=== PATIENT | male | born 1955 | race Caucasian/White ===

== ENCOUNTER 2020-02-28 10:15 | Outpatient (REF) | payer MEDICARE, SELFPAY ==
[2020-02-28 13:37] LABS: Hemoglobin A1C 6.2 % (3.8-5.6)
[2020-02-28 14:11] LABS: CREATININE 0.77 mg/dL (0.70-1.30); Calculated LDL 105 mg/dL (<100); Cholesterol 170 mg/dL (<200); Glucose 96 mg/dL (74-106); HDL Cholesterol 32 mg/dL (40-60); Potassium 4.4 mmol/L (3.5-5.1); Triglyceride 165 mg/dL (<150)
== END 2020-02-28 10:35 ==
LOC: LBN 10:15
PROVIDERS: PCP Family Medicine; Visit Provider Family Medicine
DX: R73.9 Hyperglycemia, unspecified (principal); E78.5 Hyperlipidemia, unspecified; E74.39 Other disorders of intestinal carbohydrate absorption; I10 Essential (primary) hypertension
CPT/HCPCS: 80061; 82947; 82565; 83036; 84132

== ENCOUNTER 2020-12-22 10:41 | Outpatient (REF) | payer MEDICARE, SELFPAY ==
[2020-12-22 14:58] LABS: Hemoglobin A1C 6.4 % (<5.7)
[2020-12-22 15:23] LABS: ALT 38 U/L (16-63); AST 19 U/L (15-37); Albumin 3.8 g/dL (3.4-5.0); Alkaline Phosphatase 80 U/L (46-116); Anion Gap 8.5 mmol/L (3-11); BUN 18 mg/dL (7-18); Bilirubin, Total 0.3 mg/dL (0.2-1.0); CO2 29.5 mmol/L (21.0-32.0); CREATININE 0.9 mg/dL (0.70-1.30); Calcium 8.9 mg/dL (8.5-10.1); Chloride 106 mmol/L (98-107); GGT 40 U/L (15-85); Glucose 140 mg/dL (74-106); Potassium 4.2 mmol/L (3.5-5.1); Sodium 144 mmol/L (136-145); TSH 1.74 uIU/mL (0.36-3.74); Total Protein 7.2 g/dL (6.4-8.2); Vitamin B12 300 pg/mL (193-986)
[2020-12-22 15:35] LABS: Bilirubin, Direct 0.1 mg/dL (0.0-0.2)
== END 2020-12-22 10:42 | disposition home or self-care (01) ==
LOC: LBN 10:41
PROVIDERS: PCP Family Medicine; Visit Provider Emergency Medicine
DX: I10 Essential (primary) hypertension (principal); E11.9 Type 2 diabetes mellitus without complications; E03.9 Hypothyroidism, unspecified; Z79.899 Other long term (current) drug therapy
CPT/HCPCS: 80048; 80076; 82043; 82570; 82607; 82977; 83036; 84443

== ENCOUNTER 2020-12-24 08:42 | Outpatient (REF) | payer MEDICARE, SELFPAY ==
[2020-12-24 14:29] LABS: COMMENT (LAB VIEW ONLY) 112.48 mg/dL; Microalb ug/mg Crea 87.7 ug/mg Cr
== END 2020-12-24 08:43 | disposition home or self-care (01) ==
LOC: LBN 08:42
PROVIDERS: PCP Family Medicine; Visit Provider Emergency Medicine
DX: E78.5 Hyperlipidemia, unspecified (principal); E11.9 Type 2 diabetes mellitus without complications
CPT/HCPCS: 82043; 82570

== ENCOUNTER 2022-12-02 02:10 | Outpatient (CLI) | payer MEDICARE, SELFPAY ==
[2022-12-02 12:23] LABS: Anion Gap 8.1 mmol/L (3-11); BUN 12 mg/dL (7-18); CO2 29.9 mmol/L (21.0-32.0); CREATININE 0.8 mg/dL (0.70-1.30); Calcium 9.3 mg/dL (8.5-10.1); Chloride 103 mmol/L (98-107); Glucose 163 mg/dL (74-106); Sodium 141 mmol/L (136-145)
[2022-12-02 12:28] LABS: Hemoglobin A1C 7.2 % (<5.7)
== END 2022-12-02 02:11 | disposition home or self-care (01) ==
PROVIDERS: PCP Family Medicine; Visit Provider Family Medicine
DX: E11.51 Type 2 diabetes mellitus with diabetic peripheral angiopathy without gangrene (principal); E87.1 Hypo-osmolality and hyponatremia; I10 Essential (primary) hypertension; E78.00 Pure hypercholesterolemia, unspecified
CPT/HCPCS: 36415; 80048; 83036

== ENCOUNTER 2023-03-09 10:34 | Outpatient (REF) | payer MEDICARE, SELFPAY ==
[2023-03-09 19:34] LABS: COMMENT (LAB VIEW ONLY) 197.97 mg/dL; Microalb ug/mg Crea 157.4 ug/mg Cr
== END 2023-03-09 10:35 | disposition home or self-care (01) ==
LOC: LBN 10:34
PROVIDERS: PCP Family Medicine; Visit Provider Family Medicine
DX: E11.9 Type 2 diabetes mellitus without complications (principal)
CPT/HCPCS: 82043; 82570

== ENCOUNTER 2023-07-26 09:01 | Emergency (ER) | payer MEDICARE, SELFPAY ==
[2023-07-26 09:09] VITALS: BP 163/99; PULSE 79; RESP 16; TEMP 37.1; O2SAT 95
--- NOTE | 2023-07-26 09:13 | ED.GENADUL_ITS ---
HPI General Stated Complaint: Vascular CHRISTIAN: 3 Date/Time Provider Initiated Documentation: 07/26/23 09:13. HPI Narrative: 67 year-old male presents to ED today by POV/ambulating with his daughter with a chief complaint of L calf and knee pain with walking with onset for a few weeks, subacute for much longer. Quality described as has a pale white hairless calf, states bad circulation issues, and having pain in the popliteal fossa that is worse with activity, no radiation to ulcerations, unilateral leg swelling, erythema, purulent drainage, medial thigh tenderness. Severity is described as 6-7/10. Palliating factors include nothing specific attempted. Provoking factors include nothing specific. Events leading up to the incident/Associated Symptoms: Patient believes he may have PAD, denies history of DVT. Incidentally patient states he had some chest pain last week. Patient not anticoagulated. Related Data Home Medications Medication Instructions Recorded Confirmed aspirin 325 mg tablet 1 tab PO DAILY #90 tab-caps 07/15/13 07/26/23 cholecalciferol (vitamin D3) 25 1,000 unit PO DAILY 09/12/14 07/26/23 mcg (1,000 unit) capsule diphenhydramine 25 1 tab PO QHS PRN 09/07/18 07/26/23 mg-acetaminophen 500 mg tablet (Tylenol PM Extra Strength) amlodipine 5 mg tablet 5 mg PO DAILY #90 tabs 11/28/22 07/26/23 atorvastatin 40 mg tablet (Lipitor) 40 mg PO DAILY #90 tabs 12/01/22 07/26/23 blood-glucose meter (OneTouch #1 ea 12/01/22 07/26/23 Ultra2 Meter) fluoxetine 40 mg capsule 40 mg PO DAILY #90 tab-caps 12/01/22 07/26/23 lancets #100 ea 12/01/22 07/26/23 trazodone 50 mg tablet 50 mg PO QHS #30 tabs 12/01/22 07/26/23 blood sugar diagnostic (OneTouch #100 ea 12/02/22 07/26/23 Ultra Test strips) semaglutide 0.25 mg or 0.5 mg (2 0.25 mg (0.368 mL) subcut QWEEK #3 12/03/22 07/26/23 mg/3 mL) subcutaneous pen injector mL (Ozempic) semaglutide 0.25 mg or 0.5 mg (2 0.5 mg (0.736 mL) subcut QWEEK #3 01/10/23 07/26/23 mg/3 mL) subcutaneous pen injector mL (Ozempic) fluticasone propionate 50 2 spray intranasal DAILY #9.9 grams 03/09/23 07/26/23 mcg/actuation nasal spray,suspension metoprolol succinate 100 mg 100 mg PO DAILY #90 tab-caps 03/09/23 07/26/23 tablet,extended release 24 hr semaglutide 1 mg/dose (2 mg/1.5 1 mg (0.75 mL) subcut QWEEK #3 mL 05/04/23 07/26/23 mL) subcutaneous pen injector lisinopril 20 mg tablet 20 mg PO DAILY #90 tab-caps 05/29/23 07/26/23 ibuprofen 800 mg tablet 800 mg PO TID PRN fever or pain 06/22/23 07/26/23 #90 tab-caps nitroglycerin 0.4 mg sublingual 0.4 mg sublingual q 5 mins PRN 06/22/23 07/26/23 tablet (Nitrostat) chest pain #25 tabs semaglutide 2 mg/dose (8 mg/3 mL) 2 mg (0.75 mL) subcut QWEEK #3 mL 06/22/23 07/26/23 subcutaneous pen injector (Ozempic) Previous Rx's Medication Instructions Recorded amlodipine 5 mg tablet 5 mg PO DAILY #90 tabs 11/28/22 atorvastatin 40 mg tablet (Lipitor) 40 mg PO DAILY #90 tabs 12/01/22 blood-glucose meter (OneTouch #1 ea 12/01/22 Ultra2 Meter) fluoxetine 40 mg capsule 40 mg PO DAILY #90 tab-caps 12/01/22 lancets #100 ea 12/01/22 trazodone 50 mg tablet 50 mg PO QHS #30 tabs 12/01/22 blood sugar diagnostic (OneTouch #100 ea 12/02/22 Ultra Test strips) semaglutide 0.25 mg or 0.5 mg (2 0.25 mg (0.368 mL) subcut QWEEK #3 12/03/22 mg/3 mL) subcutaneous pen injector mL (Ozempic) semaglutide 0.25 mg or 0.5 mg (2 0.5 mg (0.736 mL) subcut QWEEK #3 01/10/23 mg/3 mL) subcutaneous pen injector mL (Ozempic) fluticasone propionate 50 2 spray intranasal DAILY #9.9 grams 03/09/23 mcg/actuation nasal spray,suspension metoprolol succinate 100 mg 100 mg PO DAILY #90 tab-caps 03/09/23 tablet,extended release 24 hr semaglutide 1 mg/dose (2 mg/1.5 1 mg (0.75 mL) subcut QWEEK #3 mL 05/04/23 mL) subcutaneous pen injector lisinopril 20 mg tablet 20 mg PO DAILY #90 tab-caps 05/29/23 ibuprofen 800 mg tablet 800 mg PO TID PRN fever or pain 06/22/23 #90 tab-caps nitroglycerin 0.4 mg sublingual 0.4 mg sublingual q 5 mins PRN 06/22/23 tablet (Nitrostat) chest pain #25 tabs semaglutide 2 mg/dose (8 mg/3 mL) 2 mg (0.75 mL) subcut QWEEK #3 mL 06/22/23 subcutaneous pen injector (Ozempic) Allergies Allergy/AdvReac Type Severity Reaction Status Date / Time venom-honey bee AdvReac Intermediate Verified 07/26/23 09:13 Review of Systems All systems reviewed & are unremarkable except as noted in HPI and below PFSH All Active Problems Peripheral arterial disease (Acute) Bilateral hip pain (Acute) Tinea pedis (Acute) Neuropathy (Acute) Diabetes mellitus (Chronic) Corneal foreign body (Acute) Hypertension (Chronic) History of intravascular stent placement (Acute) Allergic sinusitis (Chronic) Insomnia (Chronic) Physical deconditioning (Acute 11/22/17) Obesity (Acute 12/13/12) Impotence (Acute) IFG (impaired fasting glucose) (Acute 11/29/17) Hypercholesterolemia (Acute 12/13/12) Essential hypertension (Acute 06/20/13) Depressive disorder (Acute 12/13/12) Coronary atherosclerosis of [place] coronary vessel (Acute) Acute anterior HI-stent placed; 2002 Atherosclerosis of [place] coronary artery (Acute) Acute anterior HI-stent placed; 2002 LAD Alcohol abuse (Acute) uses less at present (2009) Surgical History Stent placement 2003 X 2 Family History (Updated 03/02/20 @ 11:05 by Rosa Maria Naylor) Mother , 62 Essential hypertension Alzheimer disease Depression Hyperlipidemia Cancer Cervical Heart disease Alcohol abuse Father , 84 Essential hypertension Heart disease Hyperlipidemia Sister , 29 Essential hypertension Hyperlipidemia Grandfather Alzheimer disease Grandfather Heart disease Grandmother Essential hypertension Grandmother Neoplasm ? Sister Substance abuse Depression Sister , MVA at age 29. No problems noted. Son Substance abuse H/O Depression Alcohol abuse Son Depression Alcohol abuse Daughter No problems noted. Daughter Depression Maternal Grandfather , 70s Alcohol abuse Alzheimer disease Paternal Grandfather , 47 Heart disease Maternal Grandmother , 78 Hypertension Paternal Grandmother , 76 No problems noted. 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 Pets and animals: Yes Pets and animals: cat(s) and dog(s) Sexually active: No Do you think of yourself as: straight/heterosexual Current gender identity: male What is your relationship status?: How often do you talk on the phone with friends or family?: twice per week How often do you get together with friends or relatives?: once per week How often do you attend gnosticist or rastafari services?: decline to answer Do you belong to any clubs or organized social groups?: no Panel score (0-1 are the most socially isolated patients): 2 What type of physical activity do you participate in: aerobic and other 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 SKIN: Warm, pink, dry, intact, without rashes/lesions/ulcerations. HEAD: Normocephalic, atraumatic, normal hair distribution for gender/age. EYES: Pupils PERRLA, EOMs intact without nystagmus, normal conjunctiva, no exudates on lids/lashes. ENT: Nares patent, no circumoral cyanosis, no facial swelling NECK: Supple, trachea midline, painless cervical ROM. LUNGS/CHEST: Non-labored respirations, normal A/P diameter, symmetrical expansion, no chest wall deformity HEART (CV/PV): Regular rate, L dorsalis pedis 2+, no peripheral edema, no JVD. ABDOMEN: Soft, non-distended, no guarding. MSK: Normal ROM, no swelling/deformity to bilateral UEs or LEs, moving all extremities without weakness, no cyanosis, spine midline without tenderness, normal curvature. L LE: Pale cool left lower extremity with brisk capillary refill and all toes, left dorsalis pedis pulse 2+, no leg ulcerations, left popliteal pulse not palpable history Leg swelling or skin changes of DVT, no joint line tenderness in the left knee, no left hip tenderness, no lumbar back tenderness, no saddle anesthesia NEURO: Mental Status AAOx4 - alert to person, place, time, events No facial droop, no forehead involvement. Motor: No focal weakness - strength 5/5 in bilateral UEs and LEs, proximal and distal, symmetric. Sensory: sensation intact to light touch globally. Gait normal: patient ambulated without ataxia into ED room. PSYCH: euthymic, cooperative, pleasant, appropriate speech Course Vital Signs Vital signs: Vital Signs Temperature 37.1 C 07/26/23 09:09 Pulse 79 07/26/23 09:09 Respiratory Rate 16 07/26/23 09:09 Blood Pressure 163/99 H 07/26/23 09:09 Pulse Oximetry 95 07/26/23 09:09 Temperature 37.1 C 07/26/23 09:09 Temperature Source Temporal Artery Scan 07/26/23 09:09 Pulse 79 07/26/23 09:09 Respiratory Rate 16 07/26/23 09:09 Respiratory Effort Normal 07/26/23 09:12 Blood Pressure 163/99 H 07/26/23 09:09 Blood Pressure Position Sitting 07/26/23 09:09 Pulse Oximetry 95 07/26/23 09:09 Oxygen Delivery Method Room Air 07/26/23 09:09 Oxygen Flow Rate 0 07/26/23 09:09 Pain Level 0 07/26/23 09:09 Comment Pain severe this morning when trying to get out of bed 07/26/23 09:09 Medical Decision Making This dictation utilizes [id number] dictation software and may contain unedited grammatical errors. 67 y/o M presents to ED today with a chief complaint of L leg pain, worse with activity, hx poor circulation to legs- questions PAD, reporting coolness and paleness of leg with pain with walking. Patients' medical history: Diabetes mellitus, hypertension, CAD alcohol use disorder. Family and social history: Lives independently, eats healthy diet. Pertinent exam findings / vital signs include L LE: Pale cool left lower extremity with brisk capillary refill and all toes, left dorsalis pedis pulse 2+, no leg ulcerations, left popliteal pulse not palpable history Leg swelling or skin changes of DVT, no joint line tenderness in the left knee, no left hip tenderness, no lumbar back tenderness, no saddle anesthesia. Differential / pathologies of concern include PAD, DVT, Statin related myalgia, Neuropathy, Sprain. Diagnostic studies of: -D-dimer, Trop I, CK, EKG, CBC/CMP, CTA L LE. -D-dimer negative, no clotting -Trop I neg -CBC/CMP benign -CK neg -EKG shows sinus rhythm at 67, slight left axis deviation, slightly prolonged IN interval of 206, narrow complex QRS without U waves, poor R wave progression. -CTA L LE shows some stenosis at L popliteal but has flow, suspect his syndrome is intermittent claudication of mild PAD with 40-50% stenosis Interventions of: -Counseled on likely PAD, recommend ECHO before starting cilostazol with hx CAD, recommend PCP referral to Vascular. Findings not consistent with occlusive pathology, DVT, rhabdo. Disposition of Peripheral Artery Disease. Patient verbalized understanding of the plan and return to ED criteria and engaged in shared decision making. Medical Records Medical records reviewed: Yes I reviewed the patient's medical records. Imaging Data Radiologic Study: Imaging: X-Ray Radiologist's impression: EXAM: XR CHEST 2V PA LATERAL CLINICAL HISTORY: chest pain days ago TECHNIQUE: 2D digital imaging was performed of the chest. Two images were obtained. PA and lateral views were obtained. COMPARISON: CR CHEST 2 VIEWS PA,LAT from 09/12/2014 FINDINGS: MEDIASTINUM: Normal. HEART: Stable mild cardiomegaly. PULMONARY VASCULATURE: Normal. LUNGS: Clear. PLEURAL SPACE: No pleural effusion or pneumothorax. BONE:Within normal limits for the patient's age. OTHER FINDINGS:Normal. IMPRESSION: No acute pulmonary findings. Radiologic Study #2: Imaging: CT Scan Radiologist's impression: EXAM: CT LOWER EXTREMITY LT CTA CLINICAL HISTORY: ?PAD. TECHNIQUE: Imaging Protocol: Axial CT angiography was performed with multi- slice acquisition and multi-planar and/or 3D reconstructions. CONTRAST MATERIAL: Intravenous: Omnipaque 350 Contrast volume:100 mL Oral: No COMPARISON: No exams were available for comparison FINDINGS: Vascular Structures: Abdomen and pelvis: Celiac [place]/SMA: No evidence of occlusion or significant stenosis. Mild calcific plaque is seen in the superior mesenteric artery but no significant stenosis is seen. No occlusion is seen. Renal Arteries: No evidence of occlusion or significant stenosis. Mild calcification is seen at the origin of both renal arteries but no significant stenosis is seen. Aorta: No aneurysm, occlusion or significant stenosis. There is calcification in the abdominal aorta but no evidence of dissection or occlusion. Iliac Arteries: There is mild calcifications seen in the common left iliac artery and the left internal iliac artery. No evidence of occlusion or sig nificant stenosis. Lower extremities: Left: Common Femoral: No evidence of occlusion or significant stenosis. Femoral: No evidence of occlusion or significant stenosis. Deep femoral artery: No evidence of occlusion or significant stenosis. Popliteal: No evidence of occlusion or significant stenosis. There is calcification seen in the popliteal artery but no significant stenosis. Knee Trifurcation: No evidence of occlusion or significant stenosis. There is calcification seen in the vessels of the trifurcation but no significant stenosis. There is calcification seen at the origin of the anterior tibial artery. There is faint flow seen in the anterior tibial artery. Soft Tissues: There is limited visualization of the abdomen. The visualized portions of the liver, gallbladder, bile ducts, pancreas, spleen and kidneys are unremarkable. Bladder: Symmetric distention, no gross wall thickening. Bowel: The visualized bowel is unremarkable. Visualized peritoneal cavity: No ascites, collection or mesenteric inflammatory response. No free air. Bones: Within normal limits for the patient's age. IMPRESSION: 1. Atherosclerosis is present. No evidence of occlusion of the arteries of the lower extremity. No stenosis greater than 50 percent is seen. The findings are most marked at the origin of the left anterior tibial artery where there is calcification present. There is faint flow seen distally in the anterior tibial artery. 2. Limited evaluation of the abdomen and pelvis. No acute abnormality is seen. 3. Findings were discussed with Russ Walker at 11:45 a.m. on 07/26/2023. Lab Data Lab results reviewed: Yes I reviewed the patient's lab results. Labs: Laboratory Tests Range/Units 07/26/23 09:35 WBC (4.4-10.8) 10^3/uL 10.13 RBC (4.36-5.78) 10^6/uL 4.92 Hgb (13.5-17.5) g/dL 14.3 Hct (40.0-50.0) % 43.2 MCV (80-95) fL 88 MCH (27.0-33.0) pg 29.1 MCHC (32.0-36.0) % 33.1 RDW (11.8-14.1) % 12.8 Plt Count (130-400) 10^3/uL 289 MPV (8.0-11.0) fL 9.9 Immature Gran % 0.5 Neutrophils % 57.4 Lymphocytes % 34.4 Monocytes % 5.3 Eosinophils % 1.9 Basophils % 0.5 Nucleated RBC % (0.0-0.3) % 0.0 Absolute Neutrophils (1.2-6.7) 10^3/uL 5.82 Absolute Lymphocytes (1.2-3.4) 10^3/uL 3.48 H Absolute Monocytes (0.1-0.8) 10^3/uL 0.54 Absolute Eosinophils (0.0-0.7) 10^3/uL 0.19 Absolute Basophils (0.0-0.2) 10^3/uL 0.05 D-Dimer (<500) ng/mlFEU 472 Sodium (136-145) mmol/L 138 Potassium (3.5-5.1) mmol/L 4.5 Chloride (98-107) mmol/L 103 Carbon Dioxide (21.0-32.0) mmol/L 27.7 Anion Gap (3-11) mmol/L 7.3 BUN (7-18) mg/dL 11 Creatinine (0.70-1.30) mg/dL 0.8 Est GFR (CKD-EPI 2020) (mL/min/1.73m2) 95.80 Glucose (74-106) mg/dL 163 H Calcium (8.5-10.1) mg/dL 9.2 Total Bilirubin (0.2-1.0) mg/dL 0.5 AST (15-37) U/L 31 ALT (16-63) U/L 38 Alkaline Phosphatase (46-116) U/L 82 Troponin I (<or=60) ng/L < 50 NT-Pro-B Natriuret Pep (<300) pg/mL 21 Total Protein (6.4-8.2) g/dL 8.0 Albumin (3.4-5.0) g/dL 3.7 Quality:SDOH Health Related Social Needs: No Data to Display Discharge Plan Disposition Patient Disposition: Home Condition: Stable Discharge Details Clinical Impression: Peripheral arterial disease Primary Care Provider: Franklyn Jacobson ED Provider: Russ Walker Home Meds and New Rx's Prescriptions: Continued diphenhydramine-acetaminophen [Tylenol PM Extra Strength] 25-500 mg tablet 1 tab PO QHS PRN fluoxetine 40 mg capsule 40 mg PO DAILY Qty: 90 3RF atorvastatin [Lipitor] 40 mg tablet 40 mg PO DAILY Qty: 90 3RF trazodone 50 mg tablet 50 mg PO QHS Qty: 30 11RF (DME) lancets Mis See Rx Instructions .MEDSUPPLY Qty: 100 4RF Rx Instructions: Check blood sugar once a day (DME) blood-glucose meter [OneTouch Ultra2 Meter] Mis See Rx Instructions .MEDSUPPLY Qty: 1 4RF Rx Instructions: Check blood sugar once a day metoprolol succinate 100 mg tablet extended release 24 hr 100 mg PO DAILY Qty: 90 3RF fluticasone propionate 50 mcg/actuation spray,suspension 2 spray ANNE MARIE DAILY Qty: 9.9 5RF Rx Instructions: administer into each nostril Ozempic 2 mg/dose (8 mg/3 mL) pen injector 2 mg subcut QWEEK Qty: 3 2RF ibuprofen 800 mg tablet 800 mg PO TID PRN (Reason: fever or pain) Qty: 90 1RF nitroglycerin [Nitrostat] 0.4 mg tablet, sublingual 0.4 mg Sublingual q 5 mins MDD 3 pills PRN (Reason: chest pain) Qty: 25 0RF Rx Instructions: seek immediate medical attention for persistent pain aspirin 325 MG tablet 1 tab PO DAILY Qty: 90 cholecalciferol (vitamin D3) 1,000 UNIT capsule 1,000 unit PO DAILY amlodipine 5 mg tablet 5 mg PO DAILY Qty: 90 3RF (DME) OneTouch Ultra Test Strip See Rx Instructions .Route Qty: 100 4RF Rx Instructions: Check blood sugar once a day Ozempic 0.25 mg or 0.5 mg (2 mg/3 mL) pen injector 0.25 mg subcut QWEEK Qty: 3 0RF Rx Instructions: for 4 weeks Ozempic 0.25 mg or 0.5 mg (2 mg/3 mL) pen injector 0.5 mg subcut QWEEK Qty: 3 0RF Rx Instructions: start after 4 weeks of 0.25 mg semaglutide 1 mg/dose (2 mg/1.5 mL) pen injector 1 mg subcut QWEEK Qty: 3 1RF lisinopril 20 mg tablet 20 mg PO DAILY Qty: 90 3RF Discharge Instructions Instructions: Peripheral Artery Disease (ED) Additional Instructions: You were seen in the emergency department for your left calf pain standing. There is some evidence for peripheral artery disease and your popliteal and tibial arteries, you do have collateral flow and there is no evidence of occlusion of any arteries of the leg. Your cardiac workup was negative, we checked for any breakdown of muscle with a lab called a CK due to your use of atorvastatin which was negative. There is a medication for the intermittent leg pain of peripheral artery disease called lamine stays all but it is contraindicated any level of heart failure and I think he should obtain an echocardiogram and speak to your primary care provider before starting this medication. You may need a referral from your primary care provider to see vascular [facility] at [facility]. Please return for any signs of arterial occlusion of the lower extremity including paresthesia, coolness to touch, extreme pain even with light touch. Referrals: Franklyn Jacobson MD [Primary Care Provider] - (May need cilostazol, sub- 50% stenosis but symptomatic PAD) Discharge Data Discharge Date/Time-TO BE ENTERED AT DEPARTURE: 07/26/23 12:35
[2023-07-26 09:19] VITALS: RESP 15
[2023-07-26 09:39] LABS: Abs Immature Grans 0.05 10^3/uL (0.0-0.06); Absolute Basophil Count 0.05 10^3/uL (0.0-0.2); Absolute Eosinophil Count 0.19 10^3/uL (0.0-0.7); Absolute Lymphocyte Count 3.48 10^3/uL (1.2-3.4); Absolute Monocyte Count 0.54 10^3/uL (0.1-0.8); Absolute Neutrophil Count 5.82 10^3/uL (1.2-6.7); Basophils % 0.5; Eosinophils % 1.9; HCT 43.2 % (40.0-50.0); HGB 14.3 g/dL (13.5-17.5); Immature Grans % 0.5; Lymphocytes % 34.4; MCH 29.1 pg (27.0-33.0); MCHC 33.1 % (32.0-36.0); MCV 88 fL (80-95); MPV 9.9 fL (8.0-11.0); Monocytes % 5.3; Neutrophils % 57.4; Platelet Count 289 10^3/uL (130-400); RBC 4.92 10^6/uL (4.36-5.78); RDW 12.8 % (11.8-14.1); RDW-SD 40.9 fL; WBC 10.13 10^3/uL (4.4-10.8)
--- NOTE | 2023-07-26 10:00 | DI.RAD_ITS ---
Exam(s) XR CHEST 2V PA LATERAL EXAM: XR CHEST 2V PA LATERAL CLINICAL HISTORY: chest pain days ago TECHNIQUE: 2D digital imaging was performed of the chest. Two images were obtained. PA and lateral views were obtained. COMPARISON: CR CHEST 2 VIEWS PA,LAT from 09/12/2014 FINDINGS: MEDIASTINUM: Normal. HEART: Stable mild cardiomegaly. PULMONARY VASCULATURE: Normal. LUNGS: Clear. PLEURAL SPACE: No pleural effusion or pneumothorax. BONE:Within normal limits for the patient's age. OTHER FINDINGS:Normal. IMPRESSION: No acute pulmonary findings. DATA REPOSITORY: RADIATION DOSE DELIVERED:
[2023-07-26 10:03] LABS: ALT 38 U/L (16-63); AST 31 U/L (15-37); Albumin 3.7 g/dL (3.4-5.0); Alkaline Phosphatase 82 U/L (46-116); Anion Gap 7.3 mmol/L (3-11); BUN 11 mg/dL (7-18); Bilirubin, Total 0.5 mg/dL (0.2-1.0); CO2 27.7 mmol/L (21.0-32.0); CREATININE 0.8 mg/dL (0.70-1.30); Calcium 9.2 mg/dL (8.5-10.1); Chloride 103 mmol/L (98-107); Glucose 163 mg/dL (74-106); Potassium 4.5 mmol/L (3.5-5.1); Sodium 138 mmol/L (136-145)
--- NOTE | 2023-07-26 10:15 | RT.EKG_ITS ---
APPROVED REPORT Exam: Resting ECG Reason for Exam: raj pain days ago, brief Patient Location: E HR:67 bpm ECG Measurements Heart Rate 67 AXIS VA [id number] P [id number] QRSd 97 QRS -7 QT 384 T [id number] QTc 406 Conclusion LEAD FAIL
[2023-07-26 10:16] LABS: D-Dimer 472 ng/mlFEU (<500)
[2023-07-26] MEDS: Normal Saline - Diluent 50 ML VIAL IJ (10:23)
[2023-07-26] MEDS: Omnipaque 350 MG/ML 100 ML BTL IJ (10:24)
--- NOTE | 2023-07-26 10:35 | DI.CT_ITS ---
Exam(s) CT LOWER EXTREMITY LT CTA EXAM: CT LOWER EXTREMITY LT CTA CLINICAL HISTORY: ?PAD. TECHNIQUE: Imaging Protocol: Axial CT angiography was performed with multi-slice acquisition and mu lti-planar and/or 3D reconstructions. CONTRAST MATERIAL: Intravenous: Omnipaque 350 Contrast volume:100 mL Oral: No COMPARISON: No exams were available for comparison FINDINGS: Vascular Structures: Abdomen and pelvis: Celiac [place]/SMA: No evidence of occlusion or significant stenosis. Mild calcific plaque is seen in t he superior mesenteric artery but no significant stenosis is seen. No occlusion is seen. Renal Arteries: No evidence of occlusion or significant stenosis. Mild calcification is seen at the o rigin of both renal arteries but no significant stenosis is seen. Aorta: No aneurysm, occlusion or significant stenosis. There is calcification in the abdominal aort a but no evidence of dissection or occlusion. Iliac Arteries: There is mild calcifications seen in the common left iliac artery and the left inter nal iliac artery. No evidence of occlusion or significant stenosis. Lower extremities: Left: Common Femoral: No evidence of occlusion or significant stenosis. Femoral: No evidence of occlusion or significant stenosis. Deep femoral artery: No evidence of occlusion or significant stenosis. Popliteal: No evidence of occlusion or significant stenosis. There is calcification seen in the pop liteal artery but no significant stenosis. Knee Trifurcation: No evidence of occlusion or significant stenosis. There is calcification seen in the vessels of the trifurcation but no significant stenosis. There is calcification seen at the orig in of the anterior tibial artery. There is faint flow seen in the anterior tibial artery. Soft Tissues: There is limited visualization of the abdomen. The visualized portions of the liver, gallbladder, bile ducts, pancreas, spleen and kidneys are unrem arkable. Bladder: Symmetric distention, no gross wall thickening. Bowel: The visualized bowel is unremarkable. Visualized peritoneal cavity: No ascites, collection or mesenteric inflammatory response. No free air . Bones: Within normal limits for the patient's age. IMPRESSION: 1. Atherosclerosis is present. No evidence of occlusion of the arteries of the lower extremity. No stenosis greater than 50 percent is seen. The findings are most marked at the origin of the left ant erior tibial artery where there is calcification present. There is faint flow seen distally in the a nterior tibial artery. 2. Limited evaluation of the abdomen and pelvis. No acute abnormality is seen. 3. Findings were discussed with Russ Walker at 11:45 a.m. on 07/26/2023. RADIATION DOSE DELIVERED: 1,794.28mGy.cm Total DLP DATA REPOSITORY: All CT scans at this facility are submitted to the National Radiology Data Registry (NRDR) Dose Index Registry (DIR) with the [employer] [place] [employer] ([employer]). RADIATION OPTIMIZATION: All CT scans at this facility use at least one of these dose optimization te chniques: automated exposure control; mA and/or kV adjustment per patient size (includes targeted exa ms where dose is matched to clinical indication); or iterative reconstruction.
[2023-07-26 10:43] LABS: NT-proBNP 21 pg/mL (<300); Troponin I < 50 ng/L (<or=60)
--- NOTE | 2023-07-26 11:00 | RT.EKG_ITS ---
APPROVED REPORT Exam: Resting ECG Reason for Exam: chest pain Patient Location: E HR:67 bpm ECG Measurements Heart Rate 67 AXIS SD 206 P 30 QRSd 100 QRS -32 QT 412 T 8 QTc 434 Conclusion Sinus rhythm normal axis no acute st segment changes
[2023-07-26 12:05] LABS: Creatine Kinase 160 U/L (39-308)
[2023-07-26 12:20] VITALS: BP 153/89; PULSE 70; RESP 14; O2SAT 94
== END 2023-07-26 12:35 | disposition home or self-care (01) ==
PROVIDERS: Emergency Provider Physician Assistant; PCP Family Medicine
DX: I73.9 Peripheral vascular disease, unspecified (principal); I10 Essential (primary) hypertension; E11.9 Type 2 diabetes mellitus without complications; I25.10 Atherosclerotic heart disease of native coronary artery without angina pectoris; I25.2 Old myocardial infarction; E78.00 Pure hypercholesterolemia, unspecified; Z95.5 Presence of coronary angioplasty implant and graft; Z79.85 Long-term (current) use of injectable non-insulin antidiabetic drugs; Z79.899 Other long term (current) drug therapy
CPT/HCPCS: 36415; 73706; 80053; 82550; 93005; 99285; 71046; 83880; 84484; 85025; 85379; 93010; 99284; J3490

== ENCOUNTER 2023-12-20 11:42 | Emergency (ER) | payer MEDICARE, SELFPAY ==
[2023-12-20] VITALS (9 sets, daily range): BP systolic 119–204; BP diastolic 71–109; PULSE 60–90; RESP 14–20; TEMP 36.5; O2SAT 88–95
--- NOTE | 2023-12-20 11:45 | RT.EKG_ITS ---
APPROVED REPORT Exam: Resting ECG Reason for Exam: sob Patient Location: E HR:79 bpm ECG Measurements Heart Rate 79 AXIS [place] 189 P 19 QRSd 98 QRS -37 QT 377 T 7 QTc 434 Conclusion Sinus rhythm...normal P axis, V-rate 60- 99 Inferior infarct, old...Q >35mS, II III aVF Anterior infarct, old...Q >40mS, abnormal ST-T, V2-V5
--- NOTE | 2023-12-20 12:06 | W.ED.GENAD ---
Discharge Plan Disposition Patient Disposition: Home Condition: Stable Discharge Details Clinical Impression: Dislocation of right elbow Primary Care Provider: Franklyn Jacobson ED Provider: Russ Walker Home Meds and New Rx's Prescriptions: Continued fluticasone propionate 50 mcg/actuation spray,suspension 2 spray ANNE MARIE DAILY Qty: 9.9 5RF Rx Instructions: administer into each nostril metoprolol succinate 100 mg tablet extended release 24 hr 100 mg PO DAILY Qty: 90 3RF Tylenol PM Extra Strength 25-500 mg tablet 1 tab PO QHS PRN (DME) lancets Misc See Rx Instructions .MEDSUPPLY Qty: 100 4RF Rx Instructions: Check blood sugar once a day (DME) blood-glucose meter [OneTouch Ultra2 Meter] Misc See Rx Instructions .MEDSUPPLY Qty: 1 4RF Rx Instructions: Check blood sugar once a day ibuprofen 800 mg tablet 800 mg PO TID PRN (Reason: fever or pain) Qty: 90 1RF nitroglycerin [Nitrostat] 0.4 mg tablet, sublingual 0.4 mg Sublingual q 5 mins MDD 3 pills PRN (Reason: chest pain) Qty: 25 0RF Rx Instructions: seek immediate medical attention for persistent pain atorvastatin [Lipitor] 40 mg tablet 40 mg PO DAILY Qty: 90 3RF amlodipine 5 mg tablet 5 mg PO DAILY Qty: 90 3RF fluoxetine 40 mg capsule 40 mg PO DAILY Qty: 90 3RF trazodone 50 mg tablet 50 mg PO QHS Qty: 30 11RF Patient Comments: 1/2 pill usually lisinopril-hydrochlorothiazide 20-12.5 mg tablet 1 tab PO DAILY Qty: 90 3RF aspirin 325 MG tablet 1 tab PO DAILY Qty: 90 cholecalciferol (vitamin D3) 1,000 UNIT capsule 1,000 unit PO DAILY (DME) OneTouch Ultra Test Strip See Rx Instructions .Route Qty: 100 4RF Rx Instructions: Check blood sugar once a day cilostazol 100 mg tablet 100 mg PO BID Qty: 60 2RF tirzepatide 10 mg/0.5 mL pen injector 10 mg subcut QWEEK Qty: 2 0RF Discharge Instructions Instructions: Elbow Dislocation (ED) Additional Instructions: You were seen in the emergency department for your fall with dislocated elbow there is a questionable small fracture fragments on initial x-ray. We underwent closed reduction of your dislocation with success. Please rest, ice, compress and elevate the area, remain in the sling for about a week and then start moving it as to prevent it from becoming frozen at stiff. Please use therapeutic dosing of Tylenol (acetamenophen) & Advil (ibuprofen) in an alternating fashion as follows: Take 650mg of Tylenol every 6 hours without missing doses- that is 4 times per day. [place] in between the Tylenol dosings, take 400mg of Advil also on a 6 hour schedule, that is also 4 times per day. Please note that some common cold medications & prescription pain medications may contain acetamenophen and you need to read OTC drug labels and factor that in to maximum daily dosings. Follow-up with orthopedics for any persistent pain past 2 weeks, return to the emergency department immediately for any signs of neurovascular emergency of the right upper extremity like complete numbness, severe swelling distal to the injury, loss of circulation to the hand Referrals: [facility] [Provider Group] Franklyn Jacobson MD [Primary Care Provider] - Discharge Data Discharge Date/Time-TO BE ENTERED AT DEPARTURE: 12/20/23 15:24 HPI General Date/Time Provider Initiated Documentation: 12/20/23 11:55. HPI Narrative: 68 year-old male presents to ED today by POV/ambulating with his daughter with a chief complaint of trip & fall while carrying a 5 gal. bucket over a wood pile at home, landing on outstretched arm with severe R elbow pain, R-hand dominant with onset just prior to arrival. Quality described as severe R elbow pain, feels out of place, no radiation to complete numbness of hand, coolness to touch, has severe pain with any arm movement, denies shoulder pain, denies headstrike/LOC, denies post-fall nausea/vomiting, no confusion. Severity is described as 10/10. Palliating factors include nothing specific attempted yet. Provoking factors include nothing specific. Patient not anticoagulated. Related Data Home Medications Medication Instructions Recorded Confirmed aspirin 325 mg tablet 1 tab PO DAILY #90 tab-caps 07/15/13 12/20/23 cholecalciferol (vitamin D3) 25 1,000 unit PO DAILY 09/12/14 12/20/23 mcg (1,000 unit) capsule diphenhydramine 25 1 tab PO QHS PRN 09/07/18 12/20/23 mg-acetaminophen 500 mg tablet (Tylenol PM Extra Strength) blood-glucose meter (OneTouch #1 ea 12/01/22 12/20/23 Ultra2 Meter) lancets #100 ea 12/01/22 12/20/23 blood sugar diagnostic (OneTouch #100 ea 12/02/22 12/20/23 Ultra Test strips) ibuprofen 800 mg tablet 800 mg PO TID PRN fever or pain 06/22/23 12/20/23 #90 tab-caps nitroglycerin 0.4 mg sublingual 0.4 mg sublingual q 5 mins PRN 06/22/23 12/20/23 tablet (Nitrostat) chest pain #25 tabs fluticasone propionate 50 2 spray intranasal DAILY #9.9 grams 08/01/23 12/20/23 mcg/actuation nasal spray,suspension metoprolol succinate 100 mg 100 mg PO DAILY #90 tab-caps 08/01/23 12/20/23 tablet,extended release 24 hr amlodipine 5 mg tablet 5 mg PO DAILY #90 tabs 09/27/23 12/20/23 atorvastatin 40 mg tablet (Lipitor) 40 mg PO DAILY #90 tabs 09/27/23 12/20/23 cilostazol 100 mg tablet 100 mg PO BID #60 tabs 09/27/23 12/20/23 fluoxetine 40 mg capsule 40 mg PO DAILY #90 tab-caps 09/27/23 12/20/23 lisinopril 20 1 tab PO DAILY #90 tabs 09/27/23 12/20/23 mg-hydrochlorothiazide 12.5 mg tablet trazodone 50 mg tablet 50 mg PO QHS #30 tabs 09/27/23 12/20/23 tirzepatide 10 mg/0.5 mL 10 mg (0.5 mL) subcut QWEEK #2 mL 11/19/23 12/20/23 subcutaneous pen injector Previous Rx's Medication Instructions Recorded blood-glucose meter (OneTouch #1 ea 12/01/22 Ultra2 Meter) lancets #100 ea 12/01/22 blood sugar diagnostic (OneTouch #100 ea 12/02/22 Ultra Test strips) ibuprofen 800 mg tablet 800 mg PO TID PRN fever or pain 06/22/23 #90 tab-caps nitroglycerin 0.4 mg sublingual 0.4 mg sublingual q 5 mins PRN 06/22/23 tablet (Nitrostat) chest pain #25 tabs fluticasone propionate 50 2 spray intranasal DAILY #9.9 grams 08/01/23 mcg/actuation nasal spray,suspension metoprolol succinate 100 mg 100 mg PO DAILY #90 tab-caps 08/01/23 tablet,extended release 24 hr amlodipine 5 mg tablet 5 mg PO DAILY #90 tabs 09/27/23 atorvastatin 40 mg tablet (Lipitor) 40 mg PO DAILY #90 tabs 09/27/23 cilostazol 100 mg tablet 100 mg PO BID #60 tabs 09/27/23 fluoxetine 40 mg capsule 40 mg PO DAILY #90 tab-caps 09/27/23 lisinopril 20 1 tab PO DAILY #90 tabs 09/27/23 mg-hydrochlorothiazide 12.5 mg tablet trazodone 50 mg tablet 50 mg PO QHS #30 tabs 09/27/23 tirzepatide 10 mg/0.5 mL 10 mg (0.5 mL) subcut QWEEK #2 mL 11/19/23 subcutaneous pen injector Allergies Allergy/AdvReac Type Severity Reaction Status Date / Time venom-honey bee AdvReac Intermediate Verified 08/01/23 13:11 General Stated Complaint: Fall/Non TraumaCriteria CHRISTIAN: 3 Review of Systems All systems reviewed & are unremarkable except as noted in HPI and below Exam Narrative Exam Narrative: GENERAL APPEARANCE: Well-nourished, non-toxic, awake and alert, atraumatic, no acute distress. SKIN: Warm, pink, dry, intact, without rashes/lesions/ulcerations. HEAD: Normocephalic, atraumatic, normal hair distribution for gender/age. EYES: Pupils PERRLA, EOMs intact without nystagmus, normal conjunctiva, no exudates on lids/lashes. ENT: Nares patent, no circumoral cyanosis, no facial swelling NECK: Supple, trachea midline, painless cervical ROM. LUNGS/CHEST: Lungs CTA bilaterally- no focally diminished or absent lung sounds, non-labored respirations, normal A/P diameter, symmetrical expansion, no chest wall deformity, no chest wall crepitus or rib tenderness HEART (CV/PV): Regular rate and rhythm without murmur, R radial pulse 2+, no peripheral edema, no JVD. ABDOMEN: Soft, non-distended, no guarding. MSK: Normal ROM, no swelling/deformity to bilateral UEs or LEs, moving all extremities without weakness, no cyanosis, spine midline without tenderness, normal curvature. R UE: Swelling and deformity with ecchymosis of the right elbow diffusely, no midshaft humeral tenderness, no midshaft forearm tenderness, unable to supinate pronate, right radial pulse 2+, sensation intact in the right hand, manager underwriting strength 5/5, no tenderness/crepitus/deformity of the shoulder, no midshaft forearm tenderness NEURO: Mental Status AAOx4 - alert to person, place, time, events No facial droop, no forehead involvement. Motor: No focal weakness - strength 5/5 in bilateral UEs and LEs- save for R UE- where manager underwriting strength is maintained 5/5, proximal and distal, symmetric. Sensory: sensation intact to light touch globally. Gait normal: patient ambulated without ataxia into ED room. PSYCH: euthymic, cooperative, pleasant, appropriate speech Course Vital Signs Vital signs: Vital Signs Temperature 36.5 C 12/20/23 11:51 Pulse 90 12/20/23 11:51 Respiratory Rate 18 12/20/23 11:51 Blood Pressure 119/76 12/20/23 11:51 Pulse Oximetry 88 L 12/20/23 11:51 Temperature 36.5 C 12/20/23 11:51 Temperature Source Temporal Artery Scan 12/20/23 11:51 Pulse 90 12/20/23 11:51 Respiratory Rate 18 12/20/23 11:51 Blood Pressure 119/76 12/20/23 11:51 Blood Pressure Position Sitting 12/20/23 11:51 Pulse Oximetry 88 L 12/20/23 11:51 Oxygen Delivery Method Room Air 12/20/23 11:51 Oxygen Flow Rate 0 12/20/23 11:51 Pain Level 5 12/20/23 11:51 Procedures Orthopedic Joint Reduction Joint #1: Time Out Performed: No Side: right Joint Reduction Location: elbow Analgesia: other (Fentanyl 100mcg attempt #1, additional 50 mcg attempt #2) Technique used: traction/counter-traction and direct manipulation Post-reduction neuro exam: intact Post-reduction vascular: intact Post Reduction X-Ray Obtained: Yes Post Reduction X-Ray Results: reduced Splint Applied: Yes Patient Tolerated Procedure: well Medical Decision Making This dictation utilizes [id number] dictation software and may contain unedited grammatical errors. 68 year-old male presents to ED today by POV/ambulating with his daughter with a chief complaint of trip & fall while carrying a 5 gal. bucket over a wood pile at home, landing on outstretched arm with severe R elbow pain, R-hand dominant with onset just prior to arrival. Quality described as severe R elbow pain, feels out of place, no radiation to complete numbness of hand, coolness to touch, has severe pain with any arm movement, denies shoulder pain, denies headstrike/LOC, denies post-fall nausea/vomiting, no confusion. Severity is described as 10/10. Palliating factors include nothing specific attempted yet. Provoking factors include nothing specific. Patients' medical history: Diabetes mellitus, hypertension, obesity, CAD. Family and social history: noncontributory, stays active with chores around the house, lives independently. Pertinent exam findings / vital signs include R UE: Swelling and deformity with ecchymosis of the right elbow diffusely, no midshaft humeral tenderness, no midshaft forearm tenderness, unable to supinate pronate, right radial pulse 2+, sensation intact in the right hand, manager underwriting strength 5/5, no tenderness/crepitus/deformity of the shoulder, no midshaft forearm tenderness. Differential / pathologies of concern include fracture, dislocation, sprain/strain, contusion. Diagnostic studies of: -XR R Elbow - shows dislocation of R elbow, questionable small fracture fragments. Interventions of: -Reduction attempt x2 with fentanyl only per patient preference, first attempt assisted by Dr. Rojas with manual traction- partial reduction. Dr. Miles happened to pass by the ER after seeing the imaging and I assisted him in the second attempted reduction with successful reduction, NV intact pre and post-reduction, placed in shoulder immobilizer. ED Course/Assessment/Plan: 68-year-old male presents after a fall over with possible carrying a 5 gallon bucket with significant dislocation of his right elbow, questionable small fracture fragments, he was reduced with fentanyl only with success after 2 attempts with assistance from Dr. Miles. He was placed in a shoulder immobilizer, recommend RICE therapy and therapeutic dosing Tylenol and ibuprofen, orthopedic follow-up as necessary for any stiffness or persistent pain with likely routine follow-up x-rays. Strict return criteria for signs of neurovascular compromise like complete numbness distal to the injury, skin temperature changes distal to the injury. Findings not consistent with large displaced fractures, NV compromise. Disposition of Dislocation of Right Elbow. Patient verbalized understanding of the plan and return to ED criteria and engaged in shared decision making. Medical Records Medical records reviewed: Yes I reviewed the patient's medical records. Imaging Data Radiologic Study: Attestation: I personally reviewed and interpreted this imaging study as follows: Imaging: X-Ray Radiologist's impression: EXAM: XR ELBOW RT COMPLETE CLINICAL HISTORY: R elbow pain; fall. TECHNIQUE: 2D digital imaging was performed of the left elbow. Three images were obtained. AP, lateral and oblique views were obtained. COMPARISON: No exams were available for comparison FINDINGS: BONES: No acute fracture is present. No bony destructive lesion is seen. There is an enthesophyte at the olecranon. JOINTS: There is a posterior dislocation of the right elbow. There is also medial subluxation of the radius and ulna relative to the distal humerus. There are osseous fragments seen on the lateral view posterior to the humerus which may represent small fracture fragments. SOFT TISSUE: Normal. IMPRESSION: Posterior dislocation of the right elbow. Bony fragments seen on the lateral view posterior to the distal humerus which may represent fracture fragments. Radiologic Study #2: Attestation: I personally reviewed and interpreted this imaging study as follows: Imaging: X-Ray Radiologist's impression: EXAM: XR ELBOW RT LIMITED CLINICAL HISTORY: elbow post reduction. TECHNIQUE: 2D digital imaging was performed of the left elbow. One images were obtained. Lateral views were obtained. COMPARISON: CR XR ELBOW RT COMPLETE from 12/20/2023 FINDINGS: A single lateral image was obtained. Though the alignment has improved, there is persistent posterior dislocation of the elbow. IMPRESSION: Persistent posterior dislocation of the right elbow. Radiologic Study #3: Attestation: I personally reviewed and interpreted this imaging study as follows: Imaging: X-Ray Radiologist's impression: EXAM: XR ELBOW RT COMPLETE POST REDU CLINICAL HISTORY: post-reduction. TECHNIQUE: 2D digital imaging was performed of the left elbow. Three images were obtained. AP, lateral and oblique views were obtained. COMPARISON: No exams were available for comparison FINDINGS: There is been successful reduction of the right elbow dislocation. IMPRESSION: Successful reduction of the right elbow dislocation. Quality:SDOH Health Related Social Needs: No Data to Display PFSH All Active Problems Dislocation of right elbow (Acute) Bilateral hip pain (Acute) Tinea pedis (Acute) Neuropathy (Acute) Diabetes mellitus (Chronic) Corneal foreign body (Acute) Hypertension (Chronic) History of intravascular stent placement (Acute) Allergic sinusitis (Chronic) Insomnia (Chronic) Physical deconditioning (Acute 11/22/17) Obesity (Acute 12/13/12) Impotence (Acute) IFG (impaired fasting glucose) (Acute 11/29/17) Hypercholesterolemia (Acute 12/13/12) Essential hypertension (Acute 06/20/13) Depressive disorder (Acute 12/13/12) Coronary atherosclerosis of [place] coronary vessel (Acute) Acute anterior NC-stent placed; 2002 Atherosclerosis of [place] coronary artery (Acute) Acute anterior NC-stent placed; 2002 LAD Alcohol abuse (Acute) uses less at present (2009) Surgical History Stent placement 2002 X 2 Family History (Updated 03/02/20 @ 11:05 by Rosa Maria Naylor) Mother , 62 Essential hypertension Alzheimer disease Depression Hyperlipidemia Cancer Cervical Heart disease Alcohol abuse Father , 84 Essential hypertension Heart disease Hyperlipidemia Sister , 29 Essential hypertension Hyperlipidemia Grandfather Alzheimer disease Grandfather Heart disease Grandmother Essential hypertension Grandmother Neoplasm ? Sister Substance abuse Depression Sister , MVA at age 29. No problems noted. Son Substance abuse H/O Depression Alcohol abuse Son Depression Alcohol abuse Daughter No problems noted. Daughter Depression Maternal Grandfather , 70s Alcohol abuse Alzheimer disease Paternal Grandfather , 47 Heart disease Maternal Grandmother , 78 Hypertension Paternal Grandmother , 76 No problems noted. 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 Pets and animals: Yes Pets and animals: cat(s) and dog(s) Sexually active: No Do you think of yourself as: straight/heterosexual Current gender identity: male What is your relationship status?: How often do you talk on the phone with friends or family?: twice per week How often do you get together with friends or relatives?: once per week How often do you attend mormonism or holiness services?: decline to answer Do you belong to any clubs or organized social groups?: no Panel score (0-1 are the most socially isolated patients): 2 What type of physical activity do you participate in: aerobic and other 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
[2023-12-20] MEDS: oxyCODONE 5 MG TAB PO (12:31)
[2023-12-20] MEDS: Acetaminophen 500 MG TAB 1000 MG PO (12:31)
[2023-12-20] MEDS: Ketorolac 10 MG TAB PO (12:37)
--- NOTE | 2023-12-20 13:04 | DI.RAD_ITS ---
Exam(s) XR ELBOW RT COMPLETE EXAM: XR ELBOW RT COMPLETE CLINICAL HISTORY: R elbow pain; fall. TECHNIQUE: 2D digital imaging was performed of the left elbow. Three images were obtained. AP, lat eral and oblique views were obtained. COMPARISON: No exams were available for comparison FINDINGS: BONES: No acute fracture is present. No bony destructive lesion is seen. There is an enthesophyte at the olecranon. JOINTS: There is a posterior dislocation of the right elbow. There is also medial subluxation of the radius and ulna relative to the distal humerus. There are osseous fragments seen on the lateral vie w posterior to the humerus which may represent small fracture fragments. SOFT TISSUE: Normal. IMPRESSION: Posterior dislocation of the right elbow. Bony fragments seen on the lateral view posterior to the d istal humerus which may represent fracture fragments. DATA REPOSITORY: RADIATION DOSE DELIVERED:
[2023-12-20 13:32] LABS: Abs Immature Grans 0.14 10^3/uL (0.0-0.06); Absolute Basophil Count 0.11 10^3/uL (0.0-0.2); Absolute Eosinophil Count 0.11 10^3/uL (0.0-0.7); Absolute Monocyte Count 1.48 10^3/uL (0.1-0.8); Basophils % 0.5 %; Eosinophils % 0.5 %; HCT 42.5 % (40.0-50.0); HGB 14.3 g/dL (13.5-17.5); Immature Grans % 0.7 %; Lymphocytes % 20.8 %; MCH 29.6 pg (27.0-33.0); MCHC 33.6 % (32.0-36.0); MCV 88 fL (80-95); MPV 9.8 fL (8.0-11.0); Monocytes % 6.9 %; Neutrophils % 70.6 %; Platelet Count 381 10^3/uL (130-400); RBC 4.83 10^6/uL (4.36-5.78); RDW-SD 41.9 fL; WBC 21.52 10^3/uL (4.4-10.8)
[2023-12-20 13:33] LABS: Absolute Lymphocyte Count 4.48 10^3/uL (1.2-3.4); Absolute Neutrophil Count 15.19 10^3/uL (1.2-6.7)
[2023-12-20 13:42] LABS: Anion Gap 8.5 mmol/L (3-11); BUN 16 mg/dL (7-18); CO2 27.5 mmol/L (21.0-32.0); CREATININE 1.3 mg/dL (0.70-1.30); Chloride 104 mmol/L (98-107); Glucose 193 mg/dL (74-106); Potassium 3.9 mmol/L (3.5-5.1); Sodium 140 mmol/L (136-145)
[2023-12-20] MEDS: fentaNYL 100 MCG/2 ML VIAL IVP (14:15)
--- NOTE | 2023-12-20 14:15 | DI.RAD_ITS ---
Exam(s) XR ELBOW RT LIMITED EXAM: XR ELBOW RT LIMITED CLINICAL HISTORY: elbow post reduction. TECHNIQUE: 2D digital imaging was performed of the left elbow. One images were obtained. Lateral v iews were obtained. COMPARISON: CR XR ELBOW RT COMPLETE from 12/20/2023 FINDINGS: A single lateral image was obtained. Though the alignment has improved, there is persistent posterio r dislocation of the elbow. IMPRESSION: Persistent posterior dislocation of the right elbow. DATA REPOSITORY: RADIATION DOSE DELIVERED:
[2023-12-20] MEDS: fentaNYL 100 MCG/2 ML VIAL 50 MCG IVP (14:45)
--- NOTE | 2023-12-20 15:14 | DI.RAD_ITS ---
Exam(s) XR ELBOW RT COMPLETE POST REDU EXAM: XR ELBOW RT COMPLETE POST REDU CLINICAL HISTORY: post-reduction. TECHNIQUE: 2D digital imaging was performed of the left elbow. Three images were obtained. AP, lat eral and oblique views were obtained. COMPARISON: No exams were available for comparison FINDINGS: There is been successful reduction of the right elbow dislocation. IMPRESSION: Successful reduction of the right elbow dislocation. DATA REPOSITORY: RADIATION DOSE DELIVERED:
== END 2023-12-20 15:24 | disposition home or self-care (01) ==
PROVIDERS: Emergency Provider Physician Assistant; PCP Family Medicine
DX: S53.124A Posterior dislocation of right ulnohumeral joint, initial encounter (principal); E11.40 Type 2 diabetes mellitus with diabetic neuropathy, unspecified; I10 Essential (primary) hypertension; I25.10 Atherosclerotic heart disease of native coronary artery without angina pectoris; Z95.5 Presence of coronary angioplasty implant and graft
CPT/HCPCS: 24600; 73080; 80048; 93005; 96374; 99284; 73070; 85025; 93010; J3010

== ENCOUNTER 2024-01-02 09:34 | Emergency (ER) | payer MEDICARE, SELFPAY ==
[2024-01-02 09:36] VITALS: BP 175/94; PULSE 85; RESP 18; TEMP 36.8; O2SAT 94
--- NOTE | 2024-01-02 09:49 | ED.GENADUL_ITS ---
Discharge Plan Disposition Patient Disposition: Home Condition: Stable Discharge Details Clinical Impression: Fracture of right wrist Primary Care Provider: Franklyn Jacobson ED Provider: Crow Miller Home Meds and New Rx's Prescriptions: Continued fluticasone propionate 50 mcg/actuation spray,suspension 2 spray ANNE MARIE DAILY Qty: 9.9 5RF Rx Instructions: administer into each nostril metoprolol succinate 100 mg tablet extended release 24 hr 100 mg PO DAILY Qty: 90 3RF Tylenol PM Extra Strength 25-500 mg tablet 1 tab PO QHS PRN (DME) lancets Misc See Rx Instructions .MEDSUPPLY Qty: 100 4RF Rx Instructions: Check blood sugar once a day (DME) blood-glucose meter [OneTouch Ultra2 Meter] Misc See Rx Instructions .MEDSUPPLY Qty: 1 4RF Rx Instructions: Check blood sugar once a day ibuprofen 800 mg tablet 800 mg PO TID PRN (Reason: fever or pain) Qty: 90 1RF nitroglycerin [Nitrostat] 0.4 mg tablet, sublingual 0.4 mg Sublingual q 5 mins MDD 3 pills PRN (Reason: chest pain) Qty: 25 0RF Rx Instructions: seek immediate medical attention for persistent pain atorvastatin [Lipitor] 40 mg tablet 40 mg PO DAILY Qty: 90 3RF amlodipine 5 mg tablet 5 mg PO DAILY Qty: 90 3RF fluoxetine 40 mg capsule 40 mg PO DAILY Qty: 90 3RF trazodone 50 mg tablet 50 mg PO QHS Qty: 30 11RF Patient Comments: 1/2 pill usually lisinopril-hydrochlorothiazide 20-12.5 mg tablet 1 tab PO DAILY Qty: 90 3RF aspirin 325 MG tablet 1 tab PO DAILY Qty: 90 cholecalciferol (vitamin D3) 1,000 UNIT capsule 1,000 unit PO DAILY (DME) OneTouch Ultra Test Strip See Rx Instructions .Route Qty: 100 4RF Rx Instructions: Check blood sugar once a day cilostazol 100 mg tablet 100 mg PO BID Qty: 60 2RF tirzepatide 10 mg/0.5 mL pen injector 10 mg subcut QWEEK Qty: 2 0RF Discharge Instructions Additional Instructions: Call orthopedics tomorrow to arrange for follow-up appointment If you feel more ill or have severe worsening pain return to the emergency department for reevaluation Referrals: Cameron Miller MD [ [facility] - [facility] General Mode of arrival: ambulatory . Date/Time Provider Initiated Documentation: 01/02/24 09:35 . Limitations to Documentation: no limitations . Information obtained by: patient . History of Present Illness 68 year old M presents to the emergency department with the chief complaint of right wrist pain, described as moderate, Quality is described as aching, Patient started experiencing this day(s) (13) and it has been constant. No relieving factors improve symptom(s), No exacerbating factors reported . Patient notes denies chest pain and fever/chills. Patient did receive the following treatments prior to arrival, none Related Data Home Medications Medication Instructions Recorded Confirmed aspirin 325 mg tablet 1 tab PO DAILY #90 tab-caps 07/15/13 01/02/24 cholecalciferol (vitamin D3) 25 1,000 unit PO DAILY 09/12/14 01/02/24 mcg (1,000 unit) capsule diphenhydramine 25 1 tab PO QHS PRN 09/07/18 01/02/24 mg-acetaminophen 500 mg tablet (Tylenol PM Extra Strength) blood-glucose meter (OneTouch #1 ea 12/01/22 01/02/24 Ultra2 Meter) lancets #100 ea 12/01/22 01/02/24 blood sugar diagnostic (OneTouch #100 ea 12/02/22 01/02/24 Ultra Test strips) ibuprofen 800 mg tablet 800 mg PO TID PRN fever or pain 06/22/23 01/02/24 #90 tab-caps nitroglycerin 0.4 mg sublingual 0.4 mg sublingual q 5 mins PRN 06/22/23 01/02/24 tablet (Nitrostat) chest pain #25 tabs fluticasone propionate 50 2 spray intranasal DAILY #9.9 grams 08/01/23 01/02/24 mcg/actuation nasal spray,suspension metoprolol succinate 100 mg 100 mg PO DAILY #90 tab-caps 08/01/23 01/02/24 tablet,extended release 24 hr amlodipine 5 mg tablet 5 mg PO DAILY #90 tabs 09/27/23 01/02/24 atorvastatin 40 mg tablet (Lipitor) 40 mg PO DAILY #90 tabs 09/27/23 01/02/24 fluoxetine 40 mg capsule 40 mg PO DAILY #90 tab-caps 09/27/23 01/02/24 lisinopril 20 1 tab PO DAILY #90 tabs 09/27/23 01/02/24 mg-hydrochlorothiazide 12.5 mg tablet trazodone 50 mg tablet 50 mg PO QHS #30 tabs 09/27/23 01/02/24 cilostazol 100 mg tablet 100 mg PO BID #60 tabs 12/25/23 01/02/24 tirzepatide 10 mg/0.5 mL 10 mg (0.5 mL) subcut QWEEK #2 mL 12/25/23 01/02/24 subcutaneous pen injector Previous Rx's Medication Instructions Recorded blood-glucose meter (OneTouch #1 ea 12/01/22 Ultra2 Meter) lancets #100 ea 12/01/22 blood sugar diagnostic (OneTouch #100 ea 12/02/22 Ultra Test strips) ibuprofen 800 mg tablet 800 mg PO TID PRN fever or pain 06/22/23 #90 tab-caps nitroglycerin 0.4 mg sublingual 0.4 mg sublingual q 5 mins PRN 06/22/23 tablet (Nitrostat) chest pain #25 tabs fluticasone propionate 50 2 spray intranasal DAILY #9.9 grams 08/01/23 mcg/actuation nasal spray,suspension metoprolol succinate 100 mg 100 mg PO DAILY #90 tab-caps 08/01/23 tablet,extended release 24 hr amlodipine 5 mg tablet 5 mg PO DAILY #90 tabs 09/27/23 atorvastatin 40 mg tablet (Lipitor) 40 mg PO DAILY #90 tabs 09/27/23 fluoxetine 40 mg capsule 40 mg PO DAILY #90 tab-caps 09/27/23 lisinopril 20 1 tab PO DAILY #90 tabs 09/27/23 mg-hydrochlorothiazide 12.5 mg tablet trazodone 50 mg tablet 50 mg PO QHS #30 tabs 09/27/23 cilostazol 100 mg tablet 100 mg PO BID #60 tabs 12/25/23 tirzepatide 10 mg/0.5 mL 10 mg (0.5 mL) subcut QWEEK #2 mL 12/25/23 subcutaneous pen injector Allergies Allergy/AdvReac Type Severity Reaction Status Date / Time venom-honey bee AdvReac Intermediate Anaphylaxis Verified 01/02/24 09:39 General Stated Complaint: Orthopedic CHRISTIAN: 4 Review of Systems All systems reviewed & are unremarkable except as noted in HPI and below Constitutional Constitutional: Denies chills, Denies fever(s) and Denies weakness Cardiovascular Cardiovascular: Denies chest pain and Denies dyspnea Respiratory Respiratory: Denies cough and Denies dyspnea Gastrointestinal Gastrointestinal: Denies abdominal pain, Denies nausea and Denies vomiting Musculoskeletal Musculoskeletal: Reports joint swelling Neurologic Neurologic: Denies weakness Exam Const General: no acute distress Orientation: alert [facility] Head: normal to inspection Ears: external ears normal General nose exam: external nose normal Mouth: moist mucous membranes Eyes General: appearance normal, both eyes and all related structures Neck Neck: normal visual inspection Resp Effort & Inspection: normal respiratory effort and able to speak in complete sentences Cardio Rate: regular rate Skin General skin exam: no rashes or lesions noted Neuro General: patient alert and patient oriented x3 Extrem General: full ROM and capillary refill normal Psych Mental Status: mental status grossly normal Course Vital Signs Vital signs: Vital Signs Temperature 36.8 C 01/02/24 09:36 Pulse 85 01/02/24 09:36 Respiratory Rate 18 01/02/24 09:36 Blood Pressure 175/94 H 01/02/24 09:36 Pulse Oximetry 94 01/02/24 09:36 Temperature 36.8 C 01/02/24 09:36 Temperature Source Temporal Artery Scan 01/02/24 09:36 Pulse 85 01/02/24 09:36 Respiratory Rate 18 01/02/24 09:36 Respiratory Effort Normal, Non-Labored 01/02/24 09:40 Blood Pressure 175/94 H 01/02/24 09:36 Blood Pressure Position Sitting 01/02/24 09:36 Pulse Oximetry 94 01/02/24 09:36 Oxygen Delivery Method Room Air 01/02/24 09:36 Oxygen Flow Rate 0 01/02/24 09:36 Medical Decision Making 68-year-old male with a history of hypertension, hyperlipidemia, comes in with right wrist pain. On the fifth of this month he sustained a fall which caused a dislocated elbow which was reduced in the emergency department. He says since discharge he has noticed some right wrist swelling and discomfort so came here for evaluation. Denies any fevers, no severe pain. He is alert speaking clear ly in no distress on arrival. He has tenderness in the posterior mid wrist with mild swelling of the joint. No erythema or warmth. He does have full range of motion of the wrist but with pain. Intact sensation and pulses in the wrist and normal cap refill in the fingers. Will obtain x-rays of the wrist to evaluate for possible fracture Patient is noted to have a fracture of the distal radius and ulnar. There is no severely displaced right feel he needs to be reduced and the injury occurred [address] in a wrist splint and have him follow-up with orthopedics. Differential Diagnosis Differential Diagnosis: Sprain, strain, contusion, fracture Medical Records Medical records reviewed: Yes I reviewed the patient's medical records. Imaging Data Radiologic Study: Attestation: I personally reviewed and interpreted this imaging study as follows: Imaging: X-Ray Radiologist's impression: IMPRESSION: Fractures of distal radius and ulna. The radial fracture is intra-articular. Quality:SDOH Health Related Social Needs: No Data to Display PFSH All Active Problems Fracture of right wrist (Acute) Dislocation of right elbow (Acute) Bilateral hip pain (Acute) Tinea pedis (Acute) Neuropathy (Acute) Diabetes mellitus (Chronic) Corneal foreign body (Acute) Hypertension (Chronic) History of intravascular stent placement (Acute) Allergic sinusitis (Chronic) Insomnia (Chronic) Physical deconditioning (Acute 11/22/17) Obesity (Acute 12/13/12) Impotence (Acute) IFG (impaired fasting glucose) (Acute 11/29/17) Hypercholesterolemia (Acute 12/13/12) Essential hypertension (Acute 06/20/13) Depressive disorder (Acute 12/13/12) Coronary atherosclerosis of [place] coronary vessel (Acute) Acute anterior GA-stent placed; 2002 Atherosclerosis of [place] coronary artery (Acute) Acute anterior GA-stent placed; 2002 LAD Alcohol abuse (Acute) uses less at present (2009) Surgical History Stent placement 2002 X 2 Family History (Updated 03/02/20 @ 11:05 by Rosa Maria Naylor) Mother , 62 Essential hypertension Alzheimer disease Depression Hyperlipidemia Cancer Cervical Heart disease Alcohol abuse Father , 84 Essential hypertension Heart disease Hyperlipidemia Sister , 29 Essential hypertension Hyperlipidemia Grandfather Alzheimer disease Grandfather Heart disease Grandmother Essential hypertension Grandmother Neoplasm ? Sister Substance abuse Depression Sister , MVA at age 29. No problems noted. Son Substance abuse H/O Depression Alcohol abuse Son Depression Alcohol abuse Daughter No problems noted. Daughter Depression Maternal Grandfather , 70s Alcohol abuse Alzheimer disease Paternal Grandfather , 47 Heart disease Maternal Grandmother , 78 Hypertension Paternal Grandmother , 76 No problems noted. 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 [employer] Pets and animals: Yes Pets and animals: cat(s) and dog(s) Sexually active: No Do you think of yourself as: straight/heterosexual Current gender identity: male What is your relationship status?: How often do you talk on the phone with friends or family?: twice per week How often do you get together with friends or relatives?: once per week How often do you attend denominational or confucianism services?: decline to answer Do you belong to any clubs or organized social groups?: no Panel score (0-1 are the most socially isolated patients): 2 What type of physical activity do you participate in: aerobic and other 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 PAWSS Have you Been Recently Intoxicated or Drunk Within the Last 30 days?: No Have you Ever Experienced Previous Episodes of Alcohol Withdrawal?: No Have you ever Experienced Withdrawal Seizures?: No Have you ever Experienced Delirium Tremens(DT)s?: No Have you ever undergone Alcohol Rehabilitation Treatment (i.e, inpt ot outpatient treatment programs)?: No Have you ever Experienced Blackouts?: No Have you ever Combined Alcohol with other Downers within the last 90 days?: No Have you ever Combined Alcohol with any other Substance of Abuse during the last 90 days?: No Positive Blood Alcohol level on Presentation? [PCS.BAL]: No Evidence of Increased Autonomic Activity (i.e. HR>120, tremor, sweating, agitation, nausea)?: No Result: 0
--- NOTE | 2024-01-02 10:05 | DI.RAD_ITS ---
Exam(s) XR WRIST RT COMPLETE EXAM: XR WRIST RT COMPLETE CLINICAL HISTORY: pain s/p fall 2 weeks ago. TECHNIQUE: 2D digital imaging was performed. COMPARISON: No exams were available for comparison FINDINGS: 3 views There is an acute comminuted intra-articular fracture of the distal radius mild displacement and ther e is also fracture of the ulnar styloid. Scaphoid and scapholunate distance appear normal. No carpa l dislocation. No significant ulnar variance. IMPRESSION: Fractures of distal radius and ulna. The radial fracture is intra-articular. DATA REPOSITORY: RADIATION DOSE DELIVERED:
[2024-01-02] MEDS: Acetaminophen 500 MG TAB 1000 MG PO (10:09)
[2024-01-02] MEDS: Ibuprofen 600 MG TAB PO (10:09)
== END 2024-01-02 11:07 | disposition home or self-care (01) ==
PROVIDERS: Emergency Provider Emergency Medicine; PCP Family Medicine
DX: S52.571A Other intraarticular fracture of lower end of right radius, initial encounter for closed fracture (principal); S52.614A Nondisplaced fracture of right ulna styloid process, initial encounter for closed fracture; I25.10 Atherosclerotic heart disease of native coronary artery without angina pectoris; I25.2 Old myocardial infarction; I10 Essential (primary) hypertension; E78.5 Hyperlipidemia, unspecified; Z95.5 Presence of coronary angioplasty implant and graft; Z79.84 Long term (current) use of oral hypoglycemic drugs
CPT/HCPCS: 99283; 73110

== ENCOUNTER 2024-01-03 15:16 | Outpatient (CLI) | payer MEDICARE, SELFPAY ==
--- NOTE | 2024-01-03 11:45 | DI.RAD_ITS ---
Exam(s) XR ELBOW RT COMPLETE EXAM: XR ELBOW RT COMPLETE CLINICAL HISTORY: F/U ELBOW REDUCTION. TECHNIQUE: 2D digital imaging was performed. Three views. COMPARISON: CR XR ELBOW RT LIMITED from 12/20/2023 CR XR ELBOW RT COMPLETE from 12/20/2023 CR XR ELBOW RT COMPLETE POST REDU from 12/20/2023 FINDINGS: BONES: Bony densities are noted adjacent to the lateral epicondyle which could represent fracture fra gments. Olecranon spur. No bony destructive lesion is seen. JOINTS: The elbow is normally aligned. No joint effusion is seen. SOFT TISSUE: Marked soft tissue swelling. IMPRESSION: Bony densities adjacent to the lateral epicondyle could represent fracture fragments. DATA REPOSITORY: RADIATION DOSE DELIVERED:
== END 2024-01-03 15:17 | disposition home or self-care (01) ==
LOC: DIORS 15:16
PROVIDERS: PCP Family Medicine; Referring Provider Family Medicine; Visit Provider Student in an Organized Health Care Education/Training Program
DX: S53.104D Unspecified dislocation of right ulnohumeral joint, subsequent encounter; S62.101D Fracture of unspecified carpal bone, right wrist, subsequent encounter for fracture with routine healing; W19.XXXD Unspecified fall, subsequent encounter
CPT/HCPCS: 99215; 73080

== ENCOUNTER 2024-01-24 14:56 | Outpatient (CLI) | payer MEDICARE, SELFPAY ==
--- NOTE | 2024-01-24 10:45 | DI.RAD_ITS ---
Exam(s) XR WRIST RT LIMITED EXAM: XR WRIST RT LIMITED INDICATION: F/U WRIST FX. COMPARISON: CR XR WRIST RT COMPLETE from 01/02/2024 TECHNIQUE: 2D digital imaging was performed. Two views. FINDINGS: Stable alignment of comminuted intra-articular fracture of the distal radius. Stable ulnar styloid f racture. No new abnormalities. DATA REPOSITORY: RADIATION DOSE DELIVERED:
== END 2024-01-24 14:57 | disposition home or self-care (01) ==
LOC: DIORS 14:56
PROVIDERS: PCP Family Medicine; Referring Provider Family Medicine; Visit Provider Physician Assistant
DX: S62.101D Fracture of unspecified carpal bone, right wrist, subsequent encounter for fracture with routine healing; S53.104D Unspecified dislocation of right ulnohumeral joint, subsequent encounter; X58.XXXD Exposure to other specified factors, subsequent encounter
CPT/HCPCS: 99213; 73100

== ENCOUNTER 2024-02-27 13:18 | Outpatient (CLI) | payer MEDICARE, SELFPAY ==
--- NOTE | 2024-02-27 10:30 | DI.RAD_ITS ---
Exam(s) XR WRIST RT LIMITED EXAM: XR WRIST RT LIMITED CLINICAL HISTORY: F/U FRACTURE. TECHNIQUE: 2D digital imaging was performed of the right wrist. Two views were obtained. PA and la teral views were obtained. COMPARISON: CR XR WRIST RT LIMITED from 01/24/2024 FINDINGS: BONES: There is no change in alignment of the fracture involving the distal right radius. There is i ncreased callus formation about the fracture consistent with some interval healing. The ulnar styloi d process fracture fragment is stable in appearance. No new fracture is seen. No bony destructive l esion is seen. JOINTS: The carpal bones are normally aligned. SOFT TISSUE: Vascular calcifications are present. IMPRESSION: Stable alignment of the healing distal radial fracture. DATA REPOSITORY: RADIATION DOSE DELIVERED:
== END 2024-02-27 13:19 | disposition home or self-care (01) ==
LOC: DIORS 13:18
PROVIDERS: PCP Family Medicine; Referring Provider Family Medicine; Visit Provider Student in an Organized Health Care Education/Training Program
DX: S62.101D Fracture of unspecified carpal bone, right wrist, subsequent encounter for fracture with routine healing; S53.104D Unspecified dislocation of right ulnohumeral joint, subsequent encounter; X58.XXXD Exposure to other specified factors, subsequent encounter
CPT/HCPCS: 99213; 73100

== ENCOUNTER 2024-05-07 15:27 | Outpatient (CLI) | payer MEDICARE, SELFPAY ==
--- NOTE | 2024-05-07 10:15 | DI.RAD_ITS ---
Exam(s) XR WRIST RT LIMITED EXAM: XR WRIST RT LIMITED CLINICAL HISTORY: F/U FRACTURE. TECHNIQUE: 2D digital imaging was performed of the right wrist. Two views were obtained. PA and la teral views were obtained. COMPARISON: CR XR WRIST RT LIMITED from 02/27/2024 FINDINGS: BONES: The distal right radial fracture appears completely healed. No new fractures identified. No bony destructive lesion is seen. JOINTS: The carpal bones are normally aligned. Mild degenerative changes are seen in the wrist. SOFT TISSUE: Normal. IMPRESSION: Healed distal right radial fracture. DATA REPOSITORY: RADIATION DOSE DELIVERED:
== END 2024-05-07 15:28 | disposition home or self-care (01) ==
LOC: DIORS 15:27
PROVIDERS: PCP Family Medicine; Referring Provider Family Medicine; Visit Provider Student in an Organized Health Care Education/Training Program
DX: S62.101D Fracture of unspecified carpal bone, right wrist, subsequent encounter for fracture with routine healing (principal); S53.104D Unspecified dislocation of right ulnohumeral joint, subsequent encounter; X58.XXXD Exposure to other specified factors, subsequent encounter
CPT/HCPCS: 99214; 73100

== ENCOUNTER 2024-08-16 00:18 | Outpatient (CLI) | payer MEDICARE, SELFPAY ==
--- OUTSIDE RECORDS SUMMARY | 2024-08-16 00:33 | XMS_ITS | Encounter Summary ---
[place] [address] Care Team Providers Care Coding Tech Name Role Phone Franklyn Jacobson MD Primary Care Provider [phone] Reason for Referral * Consultation (Routine) - Closed Specialty Diagnoses / Procedures Referred By Contac t Referred To Contact Orthopaedics Diagnoses ONGOING SIGNIFICANT DYSFUNTION R-S/P MISSED INTRA ARTICULAR DISPLACED DISTAL RADIUS FX Cameron Miller MD [address] [place] [address] [facility] [address] [place] [id number] Referral ID Status Reason Start Date Expiration Date V isits Requested Visits Authorized [id number] Closed Consult, Test & Treat PCP Updated and/or Approved 05/07/2024 05/07/2025 6 6 Encounter Details Date Type Department Care Team (Latest Contact Info) Description 06/04/2024 Transcribe Orders eD Incoming Referrals [phone] Cameron Miller MD [address] [place], [place] [id number] 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 healing, subsequent encounter Social History Tobacco Use Types Packs/Day Years Used Date Smoking Tobacco: Never Assessed Sex and Gender Information Value Date Recorded Sex Assigned at Not on file Gender Identity Not on file Sexual Orientation Not on file documented as of this encounter Plan of Treatment Scheduled Referrals Name Type Priority Associated Diagnoses Order Schedule Referral to Orthopaedics Outpatient Referral Routine Salter-Laguerre Type I Physeal Fracture Of Distal End Of Right Radius With Delayed Healing, Subsequent Encounter Ordered: 06/04/2024 documented as of this encounter Visit Diagnoses Diagnosis 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
--- OUTSIDE RECORDS SUMMARY | 2024-08-16 00:33 | XMS_ITS | Encounter Summary ---
Author Organization [facility] Address [facility] [place] [address] Care Team Providers Care Soils Analyst Name Role Phone Severo Setarns MD, John Primary Care Provider [phone] Encounter Details Date Type Department Care Team (Late st Contact Info) Description 07/26/2023 Ancillary Procedure Radiology Library at [facility] [place] [place] [id number] Franklyn Jacobson MD [address] [place] [address] Social History Tobacco Use Types Packs/Day Years Used Date Smoking Tobacco: Never Assessed Sex and Gender Information Value Date Recorded Sex Assigned at Not on file Gender Identity Not on file Sexual Orientation Not on file documented as of this encounter Plan of Treatment Not on file documented as of this encounter Procedures Procedure Name Priority Date/Time Associated Diagnosis Comments FILM LIBRARY STORAGE ONLY CT LOWER EXTREMITY Routine 07/26/2023 12:00 AM EST documented in this encounter Results * Film Library- Storage Only CT Lower Extremity (07/26/2023 12:00 AM EST) Narrative [facility] - 07/28/2023 4:36 PM EST This exam is auto-finalizing. It's purpose is for storage only. Franklyn Jacobson MD IMG FILM LIBRARY ORDERABLES [place], [place] documented in this encounter Visit Diagnoses Not on filedocumented in this encounter Care Teams Soils Analyst Relationship Specialty Start Date End Date Harlan Elkins MD [address] [place] [address] PCP - General 06/08/10 06/03/24 documented as of this encounter
--- OUTSIDE RECORDS SUMMARY | 2024-08-16 00:33 | XMS_ITS | Encounter Summary ---
Author Organization [place] [address] Care Team Providers Care Steam Fitter Supervisor Maintenance Name Role Phone Severo Stearns MD, Harlan Primary Care Provider Reason for Referral * Consultation (Routine) - Closed Specialty Diagnoses / Procedures Referred By Devin t Referred To Contact Vascular Surgery Diagnoses PAD (peripheral artery disease) ROUTINE, /JENARO, Franklyn Fam MD [email or web address] [place] [address] [facility] [address] [place] [address] Referral ID Status Reason Start Date Expiration Date V isits Requested Visits Authorized [id number] Closed Consult, Test & Treat 07/28/2023 07/27/2024 1 1 Encounter Details Date Type Department Care Team (Late st Contact Info) Description 07/28/2023 Transcribe Orders eDH Incoming Referrals [phone] Franklyn Jacobson MD [address] [place], [place] [id number] PAD (peripheral artery disease) (Primary Dx) Social History Tobacco Use Types Packs/Day Years Used Date Smoking Tobacco: Never Assessed Sex and Gender Information Value Date Recorded Sex Assigned at Not on file Gender Identity Not on file Sexual Orientation Not on file documented as of this encounter Plan of Treatment Scheduled Referrals Name Type Priority Associated Diagnoses Orde r Schedule Referral to Vascular Surgery Outpatient Referral Routine PAD (peripheral artery disease) Ordered: 07/28/2023 documented as of this encounter Visit Diagnoses Diagnosis PAD (peripheral artery disease)- Primary Peripheral vascular disease, unspecified documented in this encounter Care Teams Steam Fitter Supervisor Maintenance Relationship Specialty Start Date End Date Harlan Elkins MD [address] [place] [address] PCP - General 06/08/10 06/03/24 documented as of this encounter
--- OUTSIDE RECORDS SUMMARY | 2024-08-16 00:33 | XMS_ITS | Clinical Summary ---
Author Organization [facility] [place] [address] Care Team Providers Care High Density Press Laborer Name Role Phone Franklyn Jacobson MD Primary Care Provider [phone] Allergies No known active allergies Medications Medication Sig Dispensed Refills Start Date End Date Status aspirin 325 mg tablet 08/08/2005 Act nessa lisinopril (PRINIVIL;ZESTRIL) 20 mg tablet 10mg, PO, QD 02/07/2006 Active nitroGLYcerin (NITROSTAT) 0.4 mg SL tablet 0.4mg, Sublingual, q5 min, PRN (3 doses in 15 min.) 08/08/2005 Active FLUoxetine (PROZAC) 20 mg tablet 20MG = 1 Tablet(s), PO, Once daily 03/16/2006 Active rosuvastatin (CRESTOR) 10 mg tablet 06/26/2006 Active atenolol (TENORMIN) 100 mg tablet 07/24/2006 Active Encounters Date Type Department Care Team Description 06/04/2024 Transcribe Orders [facility] Incoming Referrals [phone] Cameron Miller MD [place]terSh[place] type I physeal fracture of distal end of right radius with delayed healing, subsequent encounter from Last 3 Months Social History Tobacco Use Types Packs/Day Years Used Date Smoking Tobacco: Never Assessed Sex and Gender Information Value Date Recorded Sex Assigned at Not on file Gender Identity Not on file Sexual Orientation Not on file Plan of Treatment Health Maintenance Due Date Last Done Comments CT Colonography 1953 Colonoscopy 1953 Colorectal Cancer Screening 1953 FIT DNA 1953 FIT 1953 Sigmoidoscopy (10 year) with FIT yearly 1953 Sigmoidoscopy 1955 Hepatitis C Screening 12/10/1971 Tetanus/Diphtheria/Pertussis Vaccines (1 - Tdap) 12/09 Pneumoccocal Vaccine: 50+ (1 of 1 - PCV) 12/10/2003 Zoster vaccine (1 of 2) 12/10/2003 Advance Directive 2008 Covid-19 Vaccine ( - season) 2024 Influenza (Flu) vaccine (1 o f 1 - Influenza standard series) 03/17/2024 Care Teams High Density Press Laborer Relationship Specialty Start Date End Date Franklyn Jacobson MD [address] [place] [address] PCP - General Family Medicine 06/04/24
--- OUTSIDE RECORDS SUMMARY | 2024-08-16 00:33 | XMS_ITS | Encounter Summary ---
Author Organization [facility] [place] [address] Care Team Providers Care Proposal Director Name Role Phone Severo Stearns MD, Harlan Primary Care Provider [phone] Reason for Referral * Diagnostic Test (Routine) - Closed Specialty Diagnoses / Procedures Referred By Devin t Referred To Contact Diagnoses PAD (peripheral artery disease) Procedures FLORES, legs, multiple levels Alejandrina Sneed APRN [facility] [place] [address] [facility] [address] [address] Referral ID Status Reason Start Date Expiration Date V isits Requested Visits Authorized [id number] Closed Specialty Service Requested 07/31/2023 07/30/2024 1 1 Encounter Details Date Type Department Care Team (Late st Contact Info) Description 07/31/2023 Orders Only [place] [address] Alejandrina Sneed APRN [facility] [place] [address] PAD (peripheral artery disease) Social History Tobacco Use Types Packs/Day Years Used Date Smoking Tobacco: Never Assessed Sex and Gender Information Value Date Recorded Sex Assigned at Not on file Gender Identity Not on file Sexual Orientation Not on file documented as of this encounter Plan of Treatment Not on file documented as of this encounter Visit Diagnoses Diagnosis PAD (peripheral artery disease) Peripheral vascular disease, unspecified documented in this encounter Care Teams Proposal Director Relationship Specialty Start Date End Date Harlan Elkins MD [address] [place] [address] PCP - General 06/08/10 06/03/24 documented as of this encounter
--- NOTE | 2024-08-16 07:15 | DI.MRI_ITS ---
Exam(s) MR UPPER JOINT RT WO EXAM: MR UPPER JOINT RT WO CLINICAL HISTORY: evaluate pathology,rt wrist pain,m25.531. TECHNIQUE: Multiplanar multisequence MRI was performed. COMPARISON: None. FINDINGS: BONES: There is a subacute appearing healing comminuted and mildly impacted fracture of the distal ra dius noted. There is mild positive ulnar variance. JOINTS: There is mild incongruity of the joint surface of the involved distal radius and there is sig nificant articular cartilage loss in the mid and lateral aspects of the radiocarpal joint. No eviden ce of scaphoid fracture nor avascular necrosis. Mild focal bone edema is seen in the lateral aspect of the distal lunate and there is some sprain signal but no full-thickness tear of the scapholunate l igament. There is no widening of the scapholunate distance. No evidence of carpal dislocation. No lunate or perilunate dislocation evident. No para-articular ganglion cysts evident. TENDONS: Extensors: Dorsally there is tenosynovitis of the extensor carpi radialis longus and brevis tendons, this most evident at the level of Kenneth's tubercle (of the dorsal radius). There are no tears of th hortencia tendons. However, there is a high-grade tear of the extensor pollicis longus tendon on the dorsa l aspect of the wrist. In addition, there is partial tearing of the dorsal carpal ligament at this l evel. The extensor or digitorum/indices/digiti minimi and extensor or carpi ulnaris are intact. Flexors: Unremarkable. No tears nor tenosynovitis. Carpal tunnel:Unremarkable MEDIAN NERVE: Unremarkable on this noncontrast examination. LIGAMENTS: There is sprain signal in the scapholunate ligament. Lunotriquetral ligament appears intact Carpal interosseous ligaments appear intact. TRIANGULAR FIBROCARTILAGE: Mild signal abnormality but no high-grade tear. There is no excess fluid in the distal radioulnar joint OTHER: IMPRESSION: 1. Subacute healing comminuted mildly impacted intra-articular fracture of the distal radius. There is mild joint surface in Crohn grew out E at this level and there is articular cartilage loss over th e distal [id number]-nik-xyaxnla aspect of the radiocarpal joint. There is no scaphoid nor lunate fractur e. 2. Scapholunate ligament sprain without high-grade tear nor increase in scapholunate distance. There is mild subarticular bone contusion in the distal lateral aspect of the lunate. There is no signal abnormality within the scaphoid nor within the other carpal row bones. 3. There is a high-grade tear of the extensor pollicis longus tendon on the dorsal aspect of the wris t. 4. There is tenosynovitis of the extensor carpi radialis longus and brevis tendons on the dorsal aspe ct of the wrist but without evidence of tear of these tendons. 5. Other findings as above DATA REPOSITORY:
== END 2024-08-16 00:38 ==
LOC: DI 00:18
PROVIDERS: PCP Family Medicine; Visit Provider Nurse Practitioner Family
DX: M25.531 Pain in right wrist (principal)
CPT/HCPCS: 73221

== ENCOUNTER 2024-11-12 08:21 | Outpatient (CLI) | payer MEDICARE, SELFPAY ==
[2024-11-12 13:05] LABS: Anion Gap 8.4 mmol/L (3-11); BUN 15 mg/dL (7-18); CO2 28.6 mmol/L (21.0-32.0); CREATININE 0.9 mg/dL (0.70-1.30); Calcium 9.8 mg/dL (8.5-10.1); Chloride 104 mmol/L (98-107); Estimated GFR 91.88 (mL/min/1.73m2); Glucose 146 mg/dL (74-106); Potassium 4.1 mmol/L (3.5-5.1); Sodium 141 mmol/L (136-145)
[2024-11-12 13:12] LABS: Hemoglobin A1C 6.8 % (<5.7)
[2024-11-12 13:32] LABS: Calculated LDL 73 mg/dL (<100); Cholesterol 149 mg/dL (<200); HDL Cholesterol 42 mg/dL (>or=40); Triglyceride 172 mg/dL (<150)
== END 2024-11-12 08:22 | disposition home or self-care (01) ==
LOC: LOS 08:22
PROVIDERS: PCP Family Medicine; Referring Provider Family Medicine; Visit Provider Family Medicine
DX: R73.9 Hyperglycemia, unspecified (principal); E78.5 Hyperlipidemia, unspecified; E87.1 Hypo-osmolality and hyponatremia
CPT/HCPCS: 36415; 80048; 80061; 83036